=== PATIENT | female | born 2000 | race Caucasian/White ===

== ENCOUNTER 2024-10-06 11:16 | Outpatient (REF) | payer BC, SELFPAY ==
--- NOTE | ~2024-10-06 | XR_ITS ---
EXAMINATION: XR PARANASAL SINUSES 3 VIEWS HISTORY: sinusitis COMPARISON: There are no prior studies for comparison. FINDINGS: Four views of the paranasal sinuses are submitted. The bilateral frontal, maxillary, ethmoid, and sphenoid sinuses are well-aerated and clear. The mastoid air cells are normally pneumatized. XR/XR sinus min 3V IMPRESSION: Unremarkable examination of the paranasal sinuses. Electronically signed by: Zion Jara MD 10/07/2024 05:50 PM EDT RP
--- OUTSIDE RECORDS SUMMARY | 2024-10-06 13:27 | XMS_ITS | Encounter Summary ---
Author Organization [facility] Address [address] [place] [address] Phone Care Team Providers Care Yard Operator Name Role Phone Ketty Gomes MD Primary Care Provider [phone] Encounter Details Date Type Department Care Team (Late st Contact Info) Description 06/13/2009 Documentation [facility] Medicine [address] [place] [address] Family Medicine, Physician [address], [place] [id number] Social History Tobacco Use Types Packs/Day Years Used Date Smoking Tobacco: Never Assessed Comments Unknown Sex and Gender Information Value Date Recorded Sex Assigned at Not on file Legal Sex Female 6:10 PM EDT Gender Identity Not on file Sexual Orientation Not on file documented as of this encounter Plan of Treatment Not on file documented as of this encounter Visit Diagnoses Not on filedocumented in this encounter Care Teams Yard Operator Relationship Specialty Start Date End Date Ketty Gomes MD [address] [place] [address] PCP - General 10/16/17 07/21/24 documented as of this encounter
--- OUTSIDE RECORDS SUMMARY | 2024-10-06 13:27 | XMS_ITS | Clinical Summary ---
Author Organization [facility] Address [address] [place] [address] Phone Care Team Providers Care Manager Of School Name Role Phone Unavailable Primary Care Provider Unavailabl e Immunizations Immunization Administration Dates Next Due DTaP 09/14/2004, 1,02/08/2000,12/04,1999 H1N1 05/17/2009 HPV, Quadrivalent 09/17/2013,10/07/2012,03/03/20 12 Hep B, ped/adol 05/09/2000,1999,1999 Hib (PRP-T) 11/01/2000, 0,1999,10/05 IPV 09/14/2004, 1,1999,10/05 Influenza 05/20/2007,03/30/2005,04/13/2004 Influenza, injectable, quadrivalent 02/09,08/17/2014,03/03/2012,04/26,06/13/2009 Influenza, injectable, quadr ivalent, preservative free 04/10/2016,02/21/2011 MMR 10/11/2003,11/01/2000 Meningococcal Conj (Menactra) MCV4P 04/10/2016,0 02/21/2011 Pneumococcal Conjugate 08/06/2000,05/09/2000, Tdap 02/21/2011 Unknown Vaccine 07/05/2011 Varicella 10/10/2007,08/06/2000 Family History Relation Name Status Comments Father Alive high cholestero l age: 53 diagnosed with Hypercholesteremia Father's Brother Alive healthy, ? HTN and ? high chol diagnosed with Hypertension, Hypercholesteremia Father's Sister Alive healthy Maternal Grandfather pancrea tic cancer, heart palpitations, arrythmia diagnosed with HEART DISEASE NOS, MALIGNANT NEOPLASM NOS Maternal Grandmother Alive high ch olesterol diagnosed with Hypercholesteremia Mother Alive healthy, hx of drug dependency, been in rehab in past age: 48 Other Alive Siblings: two h nic brothers on mom Paternal Grandfather prostat e cancer diagnosed with MALIGNANT NEOPLASM NOS Paternal Grandmother heart d z, DM, age 57 diagnosed with HEART DISEASE NOS, DMII WO CMP NT [facility] Social History Tobacco Use Types Packs/Day Years Used Date Smoking Tobacco: Never Assessed Comments Unknown Sex and Gender Information Value Date Recorded Sex Assigned at Not on file Legal Sex Female 6:10 PM EDT Gender Identity Not on file Sexual Orientation Not on file Last Filed Vital Signs Vital Sign Reading Time Taken Comments Blood Pressure 118/68 07/12/2017 12:00 AM EST Pulse 77 07/21/2011 12:00 AM EST Temperature 36.9 ??C (98.4 ??F) 07/12/2017 12:[address] Respiratory Rate - - Oxygen Saturation 100% 07/21/2011 12:00 AM EST Inhaled Oxygen Concentration - - Weight 61.1 kg (134 lb 9.6 oz) 07/12/2017 12:00 AM EST Height 166.4 cm (5' 5.5 ) 07/12/2017 12:00 AM ES T Body Mass Index 22.06 07/12/2017 12:00 AM EST Plan of Treatment Health Maintenance Due Date Last Done Comments DTaP,Tdap,and Td Vaccines (7 - Td or Tdap) 02/21/2021 02/21/2011, 09/14/2004, 02/05/2001, Additional history exists Influenza Vaccines (#1) 2024 04/10/20 16, 03/04/2015, 08/17/2014, Additional history exists COVID-19 Vaccine ( - season) 2024 Hepatitis B Vaccines Completed 05/09/2000, 1999, 1999 Pneumococcal Vaccine Completed 08/06/2000, 05/09/2000, 02/08/2000 HIB Vaccines Completed 11/01/2000, 01/10, 1999, Additional history exists MMR Vaccines Completed 10/11/2003, 11/01/2000 IPV Vaccines Completed 09/14/2004, 01/09, 1999, Additional history exists Varicella Vaccines Completed 10/10/2007, 08/06/2000 HPV Vaccines Completed 09/17/2013, 09/10, 03/03/2012 Meningococcal Vaccine Completed 04/10/2016, 011 Hepatitis A Vaccines Aged Out No long er eligible based on patient's age to complete this topic Men B Vaccine Aged Out No longer elig ible based on patient's age to complete this topic Procedures * Due to [place] [employer] law, this organization might not be sharing sensitive test results. Procedure Name Priority Date/Time Associated Diagnosis Comments CHLAMYDIA AND GONORRHEA, AMPLIFIED Routine 04/11/2016 12:00 AM EDT from Last 3 Months or Most Recently Relevant to Health Maintenance Results * Due to [place] [employer] law, this organization might not be sharing sensitive test results. * Chlamydia and Gonorrhoea, Amplified (04/11/2016 12:00 AM EDT) URINE GC AMP PROBE NEGATIVE C ONVERTED LABS Comment: No Neisseria Gonorrhoeae RNA detected in this patient's sample (REFERENCE RANGE/NORMAL VALUE: NOT DETECTED) NOTE: This test uses cw operator-mediated amplification method to detect rRNA from C.Trachomatis and N.Gonorrhoeae. A negative result does not preclude infection. In the case of a negative urine result, testing of an endocervical(female) or urethral(male) specimen is recommended if there is high clinical suspicion of infection. The performance characteristics of this test have not been evaluated in children. The Aptima Combo2 assay is not intended for the evaluation of suspected sexual abuse or for other medico-legal indications. The ordering provider should assess if the patient had consensual sex without risk of sexual abuse. Consult the [facility] if needed. Contact phone number . Therapeutic failure or success cannot be determined with the Aptima Combo2 assay since nucleic acid may persist following appropriate antimicrobial therapy. The Centers for Disease Control and Prevention (CDC) recommends confirmatory retesting using culture or a different nucleic acid amplification test when positive results occur, if indicated. URINE CHLAMYDIA AMP PROBE NEGATIVE CONVERTED LABS Comment: No Chlamydia Trachomatis RNA detected in this patient's sample (REFERENCE RANGE/NORMAL VALUE: NOT DETECTED) 04/11/2016 Narrative CONVERTED LABS - 04/11/2016 12:00 AM EDT Screening Negative Kelle Kelly 04/10/2016 10:12:19 AM > Jaylin Blanco 04/11/2016 12:14:22 PM > Katarzyna Calloway 04/12/2016 08:02:59 AM > us Katarzyna Calloway MD LAB MICROBIOLOGY - GENERAL ORDER NESHA Final Result CONVERTED LABS from Last 3 Months or Most Recently Relevant to Health Maintenance
--- OUTSIDE RECORDS SUMMARY | 2024-10-06 13:27 | XMS_ITS | Encounter Summary ---
Author Organization [facility] Address [address] [place] [address] Phone Care Team Providers Care Book Solicitor Name Role Phone Ketty Gomes MD Primary Care Provider [phone] Encounter Details Date Type Department Care Team (Late st Contact Info) Description 10/27/2017 Conversion Encounter [facility] [address] [place] [address] Ketty Gomes MD [address] [place] [address] Social History Tobacco Use Types Packs/Day Years [...] on filedocumented in this encounter Care Teams Book Solicitor Relationship Specialty Start Date End Date Ketty Gomes MD [address] [place] [address] PCP - General 10/16/17 07/21/24 documented as of this encounter
--- OUTSIDE RECORDS SUMMARY | 2024-10-06 13:27 | XMS_ITS | Clinical Summary ---
Author Organization [facility] Address [address] [place] [address] Care Team Providers Care Patient Manager Name Role Phone Unavailable Primary Care Provider Unavailabl e Source Comments PLEASE NOTE, if this patient is a minor, it may be UNLAWFUL to discuss sensitive information that is contained in these records (such as FAMILY PLANNING, MENTAL HEALTH or SUBSTANCE ABUSE) with the minor patient's parent or other person without the patient's specific authorization.[facility] Medications No known medications Social History Tobacco Use Types Packs/Day Years Used Date Smoking Tobacco: Never Assessed Social Connections Answer Date Recorded Social Connections and Isolation 0 11/05/2019 Financial Resource Strain Answer Date R ecorded Financial Resource Strain 0 2019 Stress Answer Date Recorded Stress 0 11/05/2019 Physical Activity Answer Date Recorded Physical Activity 0 11/05/2019 Food Insecurity Answer Date Recorded Food 0 11/05/2019 Transportation Needs Answer Date Record ed Transportation 0 11/05/2019 Housing Stability Answer Date Recorded Housing 0 11/05/2019 Safety and Environment Answer Date Ceasar rded Safety 0 11/05/2019 Utilities Answer Date Recorded Utilities 0 11/05/2019 Employment Answer Date Recorded Employment 0 11/05/2019 Comments Unknown Sex and Gender Information Value Date Recorded Sex Assigned at Not on file Legal Sex Female 8:08 AM PDT Gender Identity Not on file Sexual Orientation Not on file Plan of Treatment Not on file [facility]
== END 2024-10-06 11:17 | disposition home or self-care (01) ==
LOC: HO.XRAY 11:16
PROVIDERS: PCP Internal Medicine; Visit Provider Otolaryngology
DX: J32.9 Chronic sinusitis, unspecified (principal)
CPT/HCPCS: 70220

== ENCOUNTER → 2024-10-06 11:30 | Outpatient (BNV) | payer BC, SELFPAY | PROVIDERS: PCP Internal Medicine; Visit Provider Radiology Diagnostic Radiology | DX: J01.90 Acute sinusitis, unspecified (principal) | CPT/HCPCS: 70220 ==